=== PATIENT | male | born 1990 | race Caucasian/White ===

== ENCOUNTER 2019-01-12 12:56 | Emergency (ER) | payer OTHER ==
--- NOTE | 2019-01-12 13:26 | EDPHY ---
H & P Stated Complaint: Bat flew into face 3 days ago in [place] Time Seen by Provider: 01/12/19 13:24 - Personal History Current Tetanus/Diphtheria Vaccine: Unsure Current Tetanus Diphtheria and Acellular Pertussis (TDAP): Unsure - Medical/Surgical History Hx Asthma: No Hx Chronic Respiratory Disease: No Hx Diabetes: No Hx Cardiac Disease: No Hx Renal Disease: No Hx Cirrhosis: No Hx Alcoholism: No Hx HIV/AIDS: No Hx Splenectomy or Spleen Trauma: No Other PMH: depression - Social History Smoking Status: Never smoked Constitutional: Initial Vital Signs Temperature (C) 36.5 C 01/12/19 13:06 Heart Rate 88 01/12/19 13:06 Respiratory Rate 18 01/12/19 13:06 Blood Pressure 124/65 H 01/12/19 13:06 O2 Sat (%) 97 01/12/19 13:06 O2 Delivery Mode Room Air Allergies/Adverse Reactions: No Known Allergies Allergy (Unverified 01/12/19 13:05) Home Medications: Medication Instructions Recorded CLONAZEPAM 01/12/19 Venlafaxine 75MG (*) 01/12/19 Wellbutrin 75mg (*) 01/12/19 Medical Decision Making ED Course/Re-evaluation: CHIEF COMPLAINT: Bat in face HISTORY OF PRESENT ILLNESS: The patient is a 28 y/o male complaining of having a bat fly into his cheek 3 days ago. The patient was visiting [place] when a bat flew into his cheek. He denies being bit or scratched by the bat. He called the health department and they advised that he present to the emergency department. He denies any symptoms. No fever, headache, body aches, lightheadedness, chest pain, heart palpitations, shortness of breath, cough, abdominal pain, urinary or bowel complaints, numbness, paresthesias. REVIEW OF SYSTEMS: A 10 point review of systems was performed and is negative with the exception of the elements mentioned in the history of present illness. PHYSICAL EXAM: HR, BP, O2 Sat, RR. Temp noted General Appearance: Alert, well hydrated, appropriate, and non-toxic appearing. Head: Atraumatic without scalp tenderness or obvious injury Eyes: Pupils equal, round, reactive to light and accommodation, EOMI, no trauma , no injection. Ears: Clear bilaterally, no perforation, normal landmarks Nose: Atraumatic, no rhinorrhea, clear. Throat: There is no erythema or exudates, no lesions, normal tonsils, mucus membranes moist. Neck: Supple, 2+ carotid upstroke, nontender, no lymphadenopathy. Respiratory: No retractions, no distress, no wheezes, and no accessory muscle use. Lungs are clear to auscultation bilaterally. Cardiovascular: Regular rate and rhythm, no murmurs, rubs, or gallops. Bilateral carotid, radial, dorsalis pedis, and posterior tibial pulses intact. Good capillary refill all extremities. Gastrointestinal: Abdomen is soft, nontender, non-distended, no masses, no rebound, no guarding, no peritoneal signs. Musculoskeletal: Normal active ROM of all extremities, atraumatic. Neurological: Alert, appropriate, and interactive. The patient has normal DTRs and non-focal cranial nerves, motor, sensory, and cerebellar exam. Skin: No rashes, good turgor, no nodules on palpation. Past medical history: Depression Past surgical history: Denies Family history: Denies Social history: Mother at bedside, employed, does not abuse drugs or alcohol. DIAGNOSTICS/PROCEDURES/CRITICAL CARE TIME: Not indicated. DIFFERENTIAL DIAGNOSIS: The differential diagnosis for the patient's bat exposure included but was not limited to rabies exposure, bat bite. MEDICAL DECISION MAKING: The patient is a 28 y/o male presenting with having a bat fly into his cheek 3 days ago. The patient was visiting [place] when a bat flew into his cheek. He called the health department and they advised that he present to the ER. The patient is asymptomatic and has a normal physical exam. There are no bite hutchison or scratches on the patient. I will administer the rabies immunoglobulin and his first dose of the rabies vaccine. I have advised him to follow up with the [facility] for the three subsequent rabies vaccinations. Return precautions provided; patient is comfortable with this plan. Departure - Departure Disposition: Home, Routine, Self-Care Clinical Impression: Exposure to bat without known bite, Need for rabies vaccination Condition: Good Instructions: Rabies Vaccine (By injection), Rabies Immune Globulin (By injection), Rabies (ED), Rabies Vaccine (ED) Additional Instructions: 1. You will need to have the rabies vaccine on the day 0, 3, 7, and 14. Please go to the [facility] to receive the vaccine. You received day 0 in the emergency department. You received the rabies immunoglobulin today. 2. Follow-up with your primary doctor within 72 hours. Return to the Emergency Department for fever, chest pain, shortness of breath, increasing pain or other worsening of condition. Referrals: [facility] (ED,. [Edm Groups for Call Sched] - As per Instructions Report Scribed for: Nigel Vargas Report Scribed by: Oxana Barbour Date of Report: 01/12/19 Time of Report: 13:26
[2019-01-12] MEDS ORDERED: RABIES VACC, HUMAN DIPLOID/PF 2.5 UNIT VIAL (RABAVERT) IM ONE (13:30)
[2019-01-12] MEDS ORDERED: RABIES IMMUNE GLOBULIN/PF 300 UNIT/ML VIAL IF ONE (13:30)
[2019-01-12] MEDS ORDERED: RABIES IMMUNE GLOBULIN/PF 1,500 UNIT/5 ML VIAL IM ONE (14:00)
[2019-01-12 14:27] VITALS: BP 120/64
== END 2019-01-12 14:26 | disposition home or self-care (01) ==
DX: Z20.3 Contact with and (suspected) exposure to rabies (principal); Z23 Encounter for immunization